=== PATIENT | male | born 1975 | race Caucasian/White ===

== ENCOUNTER 2020-12-07 12:16 | Emergency (ER) | payer BC, SELFPAY ==
--- NOTE | ~2020-12-07 | CT_ITS ---
EXAMINATION: CT abdomen pelvis wo con EXAM DATE: 12/07/2020 13:44 INDICATION: Right flank pain. TECHNIQUE: Spiral CT of the abdomen and pelvis was performed without contrast. Axial, coronal and sag ittal images were reviewed. The dose-length product (DLP) for this examination was 191.88 mGy-cm. T he exposure was tailored according to patient size (auto mA exposure control), and iterative reconstr uction (ASIR) was used as additional dose reduction technique. There is no prior study for compariso n. FINDINGS: There is a 4 mm stone at the right ureterovesicular junction. There is mild right-sided obs tructive nephropathy. There are 2 additional punctate left calyceal stones. The prostate is unremark able. The bladder is unremarkable. The liver, spleen, adrenal glands and pancreas are unremarkable. There is a splenule. Gallbladder is unremarkable. No biliary obstruction. There is no retroperiton eal or pelvic lymphadenopathy. Tiny umbilical fat-containing hernia. The appendix is normal. The stomach and small bowel are unremarkable. There is expected amount of c olonic stool. No free intraperitoneal gas. The heart is normal in size. There are no pericardial or pleural effusions. The lung bases are unremarkable. L3-4 has moderate disc disease. Chronic L5 spondylolysis bilaterally with 2 mm anterolisthesis. Mild lumbar levoscoliosis. IMPRESSION: 1. Right UVJ 4 mm stone, mild obstructive nephropathy. 2. Punctate left nephrolithiasis. 3. Chronic L5 spondylolysis. Reviewed, dictated and finalized at location A.
[2020-12-07 12:21] VITALS: BP 140/81; PULSE 90; RESP 14; TEMP 35.9; O2SAT 100
[2020-12-07 12:57] LABS: Basophils Percent Auto 0.2 % (0.2-1.2); Eosinophils Percent Auto 0.1 % (0-4.4); Hematocrit 40.3 % (42.0-52.0); Hemoglobin 14.2 g/dL (14.0-18.0); Immature Granulocyte Absolute 0.06 K/mm3 (0.00-0.031); Immature Granulocyte Percent A 0.4 % (0-0.5); Lymphocytes Absolute Auto 1.34 K/mm3 (0.9-3.2); Lymphocytes Percent Auto 9.9 % (18.3-44.2); Mean Corpuscular HGB Conc 35.2 g/dl (32-36); Mean Corpuscular Hemoglobin 31.8 pg (26-34); Mean Corpuscular Volume 90.4 fl (80-100); Mean Platelet Volume 10.3 fl (7.4-10.4); Monocytes Absolute Auto 0.8 K/mm3 (0.1-0.6); Monocytes Percent Auto 5.6 % (2.6-8.5); Neutrophils Absolute Auto 11.3 K/mm3 (1.3-6.7); Neutrophils Percent Auto 83.8 % (45.5-73.1); Platelet Count Result 298 k/mm3 (150-375); Red Blood Count 4.46 M/mm3 (4.6-6.20); Red Cell Distribution Width 12.8 % (11.5-14.5); White Blood Count 13.5 K/mm3 (4.5-10.0)
[2020-12-07 13:00] LABS: Add Urine Microscopic? YES; Appearance Urine Cloudy (Clear); Bilirubin Urine Negative (Negative); Blood Urine 2+ (Negative); Color Urine Yellow (Yellow); Glucose Urine UA Negative (Negative); Ketones Urine Trace mg/dL (Negative); Leukocyte Esterase Ur Negative LEU/UL (Negative); Mucus Urine Few /lpf; Nitrate Urine Negative (Negative); Protein Urine 1+ mg/dL (Negative); RBC Urine 21-50 /hpf (0-2); Specific Grav Ur 1.024 (1.001-1.035); Urobilinogen Urine Negative mg/dL (<2.0)
[2020-12-07 13:11] LABS: Anion Gap 10 mmol/L (8-16); Blood Urea Nitrogen 25 mg/dL (9-20); Calcium 9.5 mg/dL (8.4-10.2); Carbon Dioxide 25 mmol/L (22-30); Chloride 101 mmol/L (98-107); Estimated CRCL calculation 70 ml/min; Estimated Glomerular Filt Rate > 60; Glucose 142 mg/dL (75-110); Potassium 3.5 mmol/L (3.4-5.0); Sodium 136 mmol/L (137-145)
--- NOTE | 2020-12-07 13:33 | ED.BACK ---
HPI - Back Pain/Injury General Chief Complaint: Back Pain/Injury Stated Complaint: Possible Kidney Stones Time Seen by Provider: 12/07/20 12:35 Source: patient, family and RN notes reviewed Mode of arrival: ambulatory Limitations: no limitations History of Present Illness HPI Narrative: Patient is 45 years old white male presents with right flank pain started this morning associated with nausea and vomiting. Patient denies any aggravating or relieving factors. Related Data Home Medications Medication Instructions Recorded Confirmed No Home Medications 12/07/20 12/07/20 Allergies Allergy/AdvReac Type Severity Reaction Status Date / Time No Known Allergies Allergy Verified 12/07/20 12:41 Review of Systems Review of Systems: Narrative: CONSTITUTIONAL: Denies fever, chills, or sweats. EYES: Denies visual changes, redness, or discharge. ENT: Denies rhinorrhea, congestion, sore throat, or otalgia. CARDIOVASCULAR: Denies chest pain, palpitations, or edema. RESPIRATORY: Denies cough or dyspnea. GASTROINTESTINAL: Denies abdominal pain, nausea, vomiting, or diarrhea. GENITOURINARY: Denies dysuria or hematuria. SKIN: Denies rash or itching. MUSCULOSKELETAL: Denies back pain, joint pain, or myalgia. NEUROLOGIC: Denies headache, numbness, or weakness. PSYCHIATRIC: Denies anxiety or depression. [facility] Social History Social History Smoking status: Never smoker Alcohol intake: current Gender identity (if verbalized by the patient): Male Exam Narrative: Exam Narrative: General appearance: Well-developed, well-nourished Skin: Normal color Head: Normocephalic, nontraumatic Eyes: Clear conjunctiva ENT: Oropharynx normal, ears normal, nose normal Neck: Supple, nontender Chest and respiratory: Airway patent, no respiratory distress, no accessory muscle use Heart: Regular rate/rhythm Abdomen: Soft, mild tenderness right flank, no organomegaly, quiet bowel sounds Vascular: Normal peripheral pulses, normal capillary refill. Musculoskeletal: Normal range of motion, nontender back Neurologic: Alert and oriented ?3, [employer] is normal as tested, no gross motor deficit Course Course Emergency Course: Stable Vital Signs Vital signs: Vital Signs Temperature 35.9 C L 12/07/20 12:21 Pulse Rate 90 12/07/20 12:21 Respiratory Rate 14 12/07/20 12:21 Blood Pressure 140/81 12/07/20 12:21 Pulse Oximetry 100 12/07/20 12:21 Temperature 35.9 C L 12/07/20 12:21 Pulse Rate 77 12/07/20 14:49 Respiratory Rate 17 12/07/20 14:49 Blood Pressure 132/92 H 12/07/20 14:49 Pulse Oximetry 99 12/07/20 14:49 MDM - Back Pain/Injury MDM Narrative Medical decision making narrative: Patient presents with right flank pain, symptoms consistent with kidney stone. Labs, CT abdomen pelvis without contrast, IV fluids, IV Dilaudid ordered. Further plan to follow Differential Diagnosis Differential diagnosis: Likely renal colic, pyelonephritis and other (Kidney stone) Lab Data Result diagrams: 12/07/20 12:50 12/07/20 12:50 Labs: Lab Results 12/07/20 12/07/20 12/07/20 Range/Units 12:50 12:50 12:50 WBC 13.5 H (4.5-10.0) K/mm3 RBC 4.46 L (4.6-6.20) M/mm3 Hgb 14.2 (14.0-18.0) g/dL Hct 40.3 L (42.0-52.0) % MCV 90.4 (80-100) fl MCH 31.8 (26-34) pg MCHC 35.2 (32-36) g/dl RDW 12.8 (11.5-14.5) % Plt Count 298 (150-375) k/mm3 MPV 10.3 (7.4-10.4) fl Immature Gran % (Auto) 0.4 (0-0.5) % Neut % (Auto) 83.8 H (45.5-73.1) % Lymph % (Auto) 9.9 L (18.3-44.2) % [place] % (Auto) 5.6 (2.6-8.5) % Eos % (Auto) 0
[2020-12-07] MEDS: ONDANSETRON INJ 4 MG/2 ML VIAL IV PUSH (14:13)
[2020-12-07] MEDS: HYDROmorphone HCL INJ (*CRX) 1 MG/ML SYR 0.5 MG IV PUSH ×2 (14:14→15:50)
[2020-12-07 14:49] VITALS: BP 132/92; PULSE 77; RESP 17; O2SAT 99
[2020-12-07] MEDS: TAMSULOSIN HCL 0.4 MG CAPSULE PO (15:45)
[2020-12-07] MEDS: KETOROLAC 30 MG/ML VIAL (*BKC) IV PUSH (15:46)
[2020-12-07 16:45] VITALS: BP 131/91; PULSE 89; RESP 16; O2SAT 100
== END 2020-12-07 16:50 | disposition home or self-care (01) ==
PROVIDERS: Emergency Provider Emergency Medicine; PCP Family Medicine
DX: N13.8 Other obstructive and reflux uropathy (principal); N20.2 Calculus of kidney with calculus of ureter; M43.06 Spondylolysis, lumbar region
CPT/HCPCS: 36415; 74176; 80048; 81001; 85025; 96374; 96375; 96376; 99284; A9270; J1170; J1885; J2405

== ENCOUNTER 2021-03-16 19:28 | Emergency (ER) | payer BC, SELFPAY ==
--- NOTE | 2021-03-16 19:30 | ED.EYEPROB ---
HPI - Eye Problem General Chief complaint: Eye Problems Stated complaint: FB EYE Time Seen by Provider: 03/16/21 19:30 Source: patient and RN notes reviewed History of Present Illness HPI Narrative: Patient is a 45-year-old male who presents the urgent care with complaints of foreign body to the left eye. Patient states that happened approximately 1 hour ago while he was cleaning out the refrigerator. Patient states he used some [id number] eyedrops to try to flush out the eye. States that he can feel it whenever he blanks . Denies of any changes in vision. No other acute complaints. No acute distress noted. Patient aware of the plan of care. Some parts of this dictation were generated by voice recognition software and may contain typographical and/or grammatical inaccuracies. Related Data Allergies Allergy/AdvReac Type Severity Reaction Status Date / Time No Known Allergies Allergy Verified 12/07/20 12:41 Review of Systems Review of Systems: Narrative: CONSTITUTIONAL: Denies fever, chills, or sweats. EYES: Denies visual changes, redness, or discharge. Reports of a foreign body in the left eye ENT: Denies rhinorrhea, congestion, sore throat, or otalgia. CARDIOVASCULAR: Denies chest pain, palpitations, or edema. RESPIRATORY: Denies cough or dyspnea. GASTROINTESTINAL: Denies abdominal pain, nausea, vomiting, or diarrhea. GENITOURINARY: Denies dysuria or hematuria. SKIN: Denies rash or itching. MUSCULOSKELETAL: Denies back pain, joint pain, or myalgia. NEUROLOGIC: Denies headache, numbness, or weakness. All other systems reviewed are negative, except as documented in HPI. [facility] Past Medical History Medical History (Updated 03/16/21 @ 19:41 by SAVANNAH Garcia) Chronic gout, unspecified, without tophus (tophi) Social History Social History Smoking status: Never smoker Alcohol intake: current Gender identity (if verbalized by the patient): Male Comments At the time of my signature, I reviewed and agree with the nursing past medical, surgical, social, and family history. There is no relevant family history pertinent to the patient complaint. Exam Narrative: Exam Narrative: GENERAL: This is a well-nourished, well-developed patient, in no apparent distress. HEAD: normocephalic, atraumatic. EYES: PERRL. Sclera clear/white. Vision is grossly intact. Obvious red SPECT foreign body to the left eye at approximately the 9 o'clock position EARS: External ears normal, auditory canals clear and without drainage, TMs normal without perforation. Hearing grossly intact. NOSE: External nose normal with no obvious nasal discharge, nares without redness, no rhinorrhea. THROAT: Mucous membranes moist NECK: Neck supple CARDIOVASCULAR: Regular rate and rhythm SKIN: warm, intact with no suspicious lesions or rash, good texture and turgor. NEURO: awake, alert, and oriented to person, place and time. There were no obvious focal neurologic abnormalities. EXTREMITIES: No clubbing, cyanosis, or edema. Course Vital Signs Vital signs: Vital Signs Temperature 98.5 F 03/16/21 19:31 Pulse Rate 76 03/16/21 19:31 Respiratory Rate 16 03/16/21 19:31 Blood Pressure 140/89 03/16/21 19:31 Pulse Oximetry 100 03/16/21 19:31 Temperature 98.5 F 03/16/21 19:31 Pulse Rate 76 03/16/21 19:31 Respiratory Rate 16 03/16/21 19:31 Blood Pressure 140/89 03/16/21 19:31 Pulse Oximetry 100 03/16/21 19:31 Reviewed Procedures FB Removal Eye Foreign Body #1: Location: eye (L) Foreign body: other (Unknown) Evidence of corneal penetration: No Technique: eye wash bottle and cotton tip swab Procedure performed under: other (Direct visualization without magnification) Patient tolerated procedure: well and no complications Foreign Body Removal Narrative: Able to remove red speck foreign body with a Q-tip applicator. No comp
[2021-03-16 19:31] VITALS: BP 140/89; PULSE 76; RESP 16; TEMP 36.9; O2SAT 100
== END 2021-03-16 19:48 | disposition home or self-care (01) ==
PROVIDERS: Emergency Provider Nurse Practitioner Family; PCP Family Medicine
DX: T15.12XA Foreign body in conjunctival sac, left eye, initial encounter (principal); X58.XXXA Exposure to other specified factors, initial encounter; M10.9 Gout, unspecified
CPT/HCPCS: 65205; 99213; A9270; G0463

== ENCOUNTER 2021-05-11 02:46 | Day surgery (SDC) | payer BC, SELFPAY ==
[2021-05-03 10:57] VITALS: BMI 25.9
[2021-05-11 08:15] VITALS: BP 119/79; PULSE 72; RESP 20; TEMP 36; O2SAT 100; BMI 25.1
[2021-05-11] MEDS: LACTATED RINGERS 1,000 ML 150 ML IV CONT (08:27)
--- NOTE | 2021-05-11 09:00 | WPDGICN ---
Assessment and Plan Assessment and plan (1) Encounter for screening colonoscopy: Code(s): Z12.11 - Encounter for screening for malignant neoplasm of colon Status: Acute Assessment and Plan: Patient presents for screening colonoscopy. Further recommendations will be given after endoscopy. Appears to be at average risk for colon polyps. GI Consult Note Consult date/time: 05/11/21 09:00 HPI: Vinod Hong is a 45 year old male Presents for screening colonoscopy. Patient reports that his current weight appetite bowel movements are normal. Patient denies abdominal pain. He has had no bleeding. Family history is noncontributory. Review of Systems Review of Systems: All systems reviewed & are unremarkable except as noted in HPI and below PMFSH Past Medical History Medical History (Updated 05/11/21 @ 09:01 by Gorge Lubin MD) Chronic gout, unspecified, without tophus (tophi) Social History Social History Smoking status: Never smoker Alcohol intake: current Drinks per week: 3 Living arrangements: with family Gender identity (if verbalized by the patient): Male Spiritual care concerns: No Meds Home Medications and Allergies Home Medications Medication Instructions Recorded Confirmed Type No Home Medications 05/03/21 05/11/21 History Allergies Allergy/AdvReac Type Severity Reaction Status Date / Time No Known Allergies Allergy Verified 05/11/21 08:14 Vital Signs Vital Signs - 24 hr 05/11/21 08:15 Temperature 96.8 F L Pulse Rate 72 Respiratory Rate 20 Blood Pressure 119/79 Pulse Oximetry 100 Exam Narrative: Physical exam reveals that vital signs are stable. A HEENT exam is unremarkable. Patient is anicteric. Lungs are clear to auscultation and percussion. Heart is without murmur or extra sounds. Abdominal exam bowel sounds are present soft nontender with no organomegaly. Digital external rectal exam is normal.
--- NOTE | 2021-05-11 09:08 | WPDANESEPPF ---
Anes - Initial Pre Proc Eval Procedure: Operation Date: 05/11/21 09:00 Proposed Procedures p Screening Colonoscopy - Gorge Lubin MD Date/Time: 05/11/21 09:08 Surgeon: Gorge Lubin MD Pre Op Diagnosis: neoplasm screening Patient Data Age: 45 Gender: M Height: 1.7 m Weight: 72.8 kg Last Vital Signs Temp 96.8 F L 05/11/21 08:15 Pulse 72 05/11/21 08:15 Resp 20 05/11/21 08:15 BP 119/79 05/11/21 08:15 Pulse Ox 100 05/11/21 08:15 Allergies Allergy/AdvReac Type Severity Reaction Status Date / Time No Known Allergies Allergy Verified 05/11/21 08:14 Home Medications Medication Instructions Recorded Confirmed Type No Home Medications 05/03/21 05/11/21 History Patient hx anesthesia problems: none Family hx anesthesia problems: none PMFSH Past Medical History Medical History (Updated 05/11/21 @ 09:01 by Gorge Lubin MD) Chronic gout, unspecified, without tophus (tophi) Social History Social History Smoking status: Never smoker Alcohol intake: current Drinks per week: 3 Living arrangements: with family Gender identity (if verbalized by the patient): Male Spiritual care concerns: No Anes - Eval Final PreProcedure Day of Procedure 05/11/21 09:08 Patient weight: normal Heart: regular rate and rhythm Lungs: clear to auscultation Airway: Mallampati scale class II Neurological: alert and oriented Last oral intake: >/= 8 hours ASA classification: II Emergent: no Anesthetic plan: proceed Anesthesia type and monitoring: general GIVS and standard monitoring Informed Consent: The patient's anesthetic plan and its attendant risks and benefits were discussed with the patient/family/POA. Questions were solicited and answers provided to the satisfaction of the patient/family/POA.
[2021-05-11 09:32] VITALS: BP 105/67; PULSE 76; RESP 15; O2SAT 98
[2021-05-11 09:42] VITALS: BP 104/74; PULSE 70; RESP 19; O2SAT 100
[2021-05-11 09:52] VITALS: BP 105/76; PULSE 72; RESP 22; O2SAT 100
== END 2021-05-11 10:25 | disposition home or self-care (01) ==
PROVIDERS: PCP Family Medicine; Visit Provider Internal Medicine Gastroenterology
PROC: 0DJD8ZZ Inspection of Lower Intestinal Tract, Via Natural or Artificial Opening Endoscopic (ICD-10-PCS; CPT 45378; principal; 2021-05-11 09:00)
DX: Z12.11 Encounter for screening for malignant neoplasm of colon (principal); M1A.9XX0 Chronic gout, unspecified, without tophus (tophi); D12.8 Benign neoplasm of rectum
CPT/HCPCS: 45385; 88305; J2001; J2704; J7120

== ENCOUNTER 2023-12-10 16:01 | Outpatient (CLI) | payer BC, SELFPAY ==
[2023-12-11 13:27] LABS: Alanine Aminotransferase 27 U/L (6-50); Albumin Level 4.4 g/dL (3.5-5.1); Alkaline Phosphatase 60 U/L (38-126); Anion Gap 6 mmol/L (4-12); Aspartate Amino Transferase 48 U/L (17-59); Bilirubin,Total 0.4 mg/dL (0.2-1.3); Blood Urea Nitrogen 19 mg/dL (9-20); Calcium 9.8 mg/dL (8.4-10.2); Carbon Dioxide 28 mmol/L (22-30); Chloride 104 mmol/L (98-107); Estimated Glomerular Filt Rate > 60; Glucose 85 mg/dL (65-110); Sodium 138 mmol/L (137-145); Uric Acid 8.3 mg/dL (3.5-8.5)
== END 2023-12-10 16:02 | disposition home or self-care (01) ==
LOC: ANHGOSHLAB 16:02
PROVIDERS: PCP Family Medicine; Visit Provider Family Medicine
DX: N20.0 Calculus of kidney (principal); M1A.9XX0 Chronic gout, unspecified, without tophus (tophi)
CPT/HCPCS: 36415; 80053; 84550

== ENCOUNTER 2023-12-13 08:27 | Emergency (ER) | payer BC, SELFPAY ==
--- NOTE | ~2023-12-13 | XR_ITS ---
XR chest 2V DATE: 12/13/2023 09:15 INDICATION: Wheezing and shortness of breath TECHNIQUE: PA and lateral views COMPARISON: None FINDINGS: Bilateral cervical ribs are suggested. Normal heart size. No hilar or mediastinal enlargement. No pulmonary infiltrate or consolidation, ple ural effusion or pulmonary vascular congestion or pneumothorax is detected. IMPRESSION: No active cardiac pulmonary disease Probable bilateral cervical ribs Reviewed, dictated and finalized at location A.
[2023-12-13 08:35] VITALS: BP 107/82; PULSE 94; RESP 16; TEMP 36.4; O2SAT 99
--- NOTE | 2023-12-13 08:52 | ED.GENADULT ---
HPI - General Adult General Chief complaint: Upper Respiratory Infection Stated complaint: COLD SYMPTOMS/CHEST CONGESTION/COUGH Time Seen by Provider: 12/13/23 08:55 Source: patient Mode of arrival: ambulatory Limitations: no limitations History of Present Illness HPI narrative: 48-year-old male presents to urgent care today with complaints of chest tightness and difficulty catching his breath especially when sleeping. Patient states symptoms of runny nose and congestion started on Friday and the chest congestion has gotten worse since then. Patient denies fevers, chills, body aches, nausea, vomiting, and diarrhea. patient denies ear symptoms and sore throat except for when coughing, and coughing has been nonproductive. takes Claritin daily and has tried [id number] Sudafed and an expectorant. Related Data Allergies Allergy/AdvReac Type Severity Reaction Status Date / Time No Known Allergies Allergy Verified 12/10/23 15:09 Review of Systems Review of Systems: CONSTITUTIONAL: Denies fever, chills, or sweats. EYES: Denies visual changes, redness, or discharge. ENT: positive rhinorrhea and congestion. denies sore throat, or otalgia. CARDIOVASCULAR: Denies chest pain, palpitations, or edema. RESPIRATORY: positive nonproductive cough and chest tightness. positive dyspnea. GASTROINTESTINAL: Denies abdominal pain, nausea, vomiting, or diarrhea. GENITOURINARY: Denies dysuria or hematuria. SKIN: Denies rash or itching. MUSCULOSKELETAL: Denies back pain, joint pain, or myalgia. NEUROLOGIC: Denies headache, numbness, or weakness. PSYCHIATRIC: Denies anxiety or depression. [facility] Past Medical History Medical History Chronic gout, unspecified, without tophus (tophi) Surgical History Surgical History H/O: vasectomy Social History Social History Smoking status: Never smoker Alcohol intake: current Drinks per week: 3 Living arrangements: with family Gender identity (if verbalized by the patient): Male Spiritual care concerns: No Comments At the time of my signature I agree with nursing past medical history, surgical, social, and family history. There is no relevant family history pertinent to the presenting complaint. Exam Narrative: GENERAL: Well-appearing, well-nourished, and in no acute distress. HEAD: Normocephalic, atraumatic. EYES: PERRLA and EOMI. ENT: Nares clear, positive rhinorrhea, negative epistaxis. Mucous membranes moist. posterior oropharynx without red erythema, edema, or drainage. tonsils 2+ position without exudate. NECK: Supple. No lymphadenopathy CHEST: wheezing on inspiration and expiration bilaterally in all lobes. No respiratory distress. HEART: Regular rate and rhythm. No murmur heard. Normal peripheral pulses. ABDOMEN: Soft, nontender, nondistended, normal active bowel sounds. EXTREMITIES: Normal range of motion. No edema. SKIN: Warm, dry, no rash. NEURO: No focal deficits. Alert and oriented x3. Course Course Level of Care: Express Care Visit Reevaluation(s) Reevaluation #1: re-evaluated patient after swabs and chest x-ray was completed. Discussed with patient that both the COVID and influenza are negative today and the chest x-ray is negative for any acute pneumonia. Discussed with patient we will discharge him home with treatment for wheezing with oral steroids and an albuterol inhaler as well as Tessalon Perles and fluticasone that he can take with his daily allergy medication to help alleviate some of the allergic rhinitis symptoms. Patient verbalized understanding denies any other questions or concerns at this time. Date: 12/13/23 Time: 09:35 Vital Signs Vital signs: Vital Signs Temperature 36.4 C 12/13/23 08:35 Pulse Rate 94 12/13/23 08:35 Respiratory Rate 16 12/13/23 08:35 Blo
== END 2023-12-13 09:40 | disposition home or self-care (01) ==
PROVIDERS: Emergency Provider Nurse Practitioner Family; PCP Family Medicine
DX: R06.2 Wheezing (principal); J06.9 Acute upper respiratory infection, unspecified; J30.9 Allergic rhinitis, unspecified; Z20.822 Contact with and (suspected) exposure to COVID-19; M1A.9XX0 Chronic gout, unspecified, without tophus (tophi)
CPT/HCPCS: 71046; 87426; 87804; 99213; G0463

== ENCOUNTER 2024-02-11 12:39 | Outpatient (CLI) | payer BC, SELFPAY ==
[2024-02-11 19:59] LABS: Uric Acid 4.4 mg/dL (3.5-8.5)
== END 2024-02-11 12:40 | disposition home or self-care (01) ==
LOC: ANHGOSHLAB 12:41
PROVIDERS: PCP Family Medicine; Visit Provider Family Medicine
DX: M1A.9XX0 Chronic gout, unspecified, without tophus (tophi) (principal)
CPT/HCPCS: 36415; 84550

== ENCOUNTER 2024-04-25 08:09 | Emergency (ER) | payer BC, SELFPAY ==
[2024-04-25 08:21] VITALS: BP 128/86; PULSE 80; RESP 16; TEMP 36.4; O2SAT 100
--- NOTE | 2024-04-25 08:37 | ED.EAR ---
HPI - Ear Problem General Chief complaint: Ear Stated complaint: Ear Pain Time Seen by Provider: 04/25/24 08:35 Source: patient, RN notes reviewed and old records reviewed Mode of arrival: ambulatory Limitations: no limitations History of Present Illness HPI Narrative: 48-year-old male presents to [facility] with complaints of left ear pain which started last night. Patient reports that he has had some sinus drainage lately and did do a sinus rinse yesterday morning and then yesterday evening he developed the left ear pain. Patient reports that pain is 6/10 has not taken any OTC medications for his discomfort. MD Complaint: ear pain (left) Location: left ear Duration: constant Severity: moderate Discharge from ear: Reports no Treatment prior to arrival: none Related Data Allergies Allergy/AdvReac Type Severity Reaction Status Date / Time No Known Allergies Allergy Verified 04/25/24 08:34 Review of Systems Review of Systems: CONSTITUTIONAL: Denies malaise, chills, sweats, or fever. EYES: Denies visual changes, redness, or discharge. ENT: Reports rhinorrhea, congestion, sinus pain, left otalgia and no sore throat. CARDIOVASCULAR: Denies chest pain, palpitations, or edema. RESPIRATORY: Reports no cough.? Denies dyspnea. GASTROINTESTINAL: Denies abdominal pain, nausea, vomiting, diarrhea SKIN: Denies rash or itching. MUSCULOSKELETAL: Denies myalgia. NEUROLOGIC: Denies headache. All systems reviewed & are unremarkable except as noted in HPI and below PMFSH Past Medical History Medical History (Updated 04/25/24 @ 08:57 by Amanda Sebastian NP) Chronic gout, unspecified, without tophus (tophi) Kidney stone Surgical History Surgical History H/O: vasectomy Social History Social History Smoking status: Never smoker Alcohol intake: current Drinks per week: 3 Living arrangements: with family Gender identity (if verbalized by the patient): Male Spiritual care concerns: No Comments At time of signature, agree with nursing past medical, surgical, social and family history. There is no relevant family history pertinent to the presenting complaint Exam Narrative: GENERAL: Well-appearing, well-nourished, and in no acute distress. HEAD: Normocephalic EYES: PERRLA, conjunctivae clear ENT: Nares clear, turbinates edematous and erythematous, clear discharge. Mucous membranes moist. TM pearly shipley with dull light reflex bilaterally; no tragal tenderness. Oropharynx erythematous without lesions. Tonsils not enlarged and without exudate, no drooling, no hoarseness, no trismus, uvula midline. NECK: Supple. No lymphadenopathy CHEST: Clear to auscultation, breath sounds equal. No wheezing, rhonchi, rales, or stridor. No respiratory distress, speaks in full sentences. HEART: Regular rate and rhythm. No murmur heard. SKIN: Warm, dry, no rash. NEURO: Alert and oriented x3. PSYCH: Normal mood and affect Course Course Emergency Course: Patient is aware of diagnosis, understands and agrees to treatment plan.? Anticipatory guidance given.? Patient agrees to follow-up as directed and is aware of reasons to seek care at the emergency department. Portions of this record may have been created with voice recognition software Level of Care: Express Care Visit Vital Signs Vital signs: Vital Signs Temperature 36.4 C 04/25/24 08:21 Pulse Rate 80 04/25/24 08:21 Respiratory Rate 16 04/25/24 08:21 Blood Pressure 128/86 04/25/24 08:21 Pulse Oximetry 100 04/25/24 08:21 Temperature 36.4 C 04/25/24 08:21 Pulse Rate 80 04/25/24 08:21 Respiratory Rate 16 04/25/24 08:21 Blood Pressure 128/86 04/25/24 08:21 Pulse Oximetry 100 04/25/24 08:21 Reviewed Medical Decision Making Differential Diagnosis Differential Diagnosis: otitis scrub woman
== END 2024-04-25 08:52 | disposition home or self-care (01) ==
PROVIDERS: Emergency Provider Registered Nurse; PCP Family Medicine
DX: H66.92 Otitis media, unspecified, left ear (principal); M1A.9XX0 Chronic gout, unspecified, without tophus (tophi); Z98.52 Vasectomy status
CPT/HCPCS: 99213; G0463